=== PATIENT | male | born 1950 | race Caucasian/White ===

== ENCOUNTER → 2023-08-13 | Outpatient (REF) | payer MEDICARE, OTHER | LOC: CT 13:05 | PROVIDERS: ATTEND Internal Medicine | DX: F17.210 Nicotine dependence, cigarettes, uncomplicated (principal) | CPT/HCPCS: 71250 ==

== ENCOUNTER → 2023-08-13 | Outpatient (REF) | payer MEDICARE, OTHER | LOC: RAD 12:54 | PROVIDERS: ATTEND Internal Medicine | DX: R07.89 Other chest pain (principal) | CPT/HCPCS: 93306 ==